=== PATIENT | female | born 1955 | race Caucasian/White ===

== ENCOUNTER 2017-02-19 13:53 | Emergency (ER) | payer SELFPAY ==
[~2017-02-19] VITALS: Ht 157.5 cm; Wt 74.8 kg
[2017-02-19] MEDS ORDERED: HYDROCODONE/APAP 5-325MG TABLET PO ONE (14:45)
[2017-02-19] MEDS ORDERED: HYDROCODONE/APAP 5-325MG TABLET ONE (14:56)
--- NOTE | 2017-02-19 16:39 | NUR ---
Patient discharged to home in stable conditon. Written and verbal after care instructions given. Patient verbalizes understanding of instructions.
[2017-02-19 16:40] VITALS: BP 110/69
== END 2017-02-19 16:41 | disposition home or self-care (01) ==
LOC: ER 13:56
DX: S00.83XA Contusion of other part of head, initial encounter (principal); K08.89 Other specified disorders of teeth and supporting structures; E78.00 Pure hypercholesterolemia, unspecified; W50.1XXA Accidental kick by another person, initial encounter; Y93.89 Activity, other specified; Y92.9 Unspecified place or not applicable; Y99.9 Unspecified external cause status
CPT/HCPCS: 70486; A4663

== ENCOUNTER 2018-02-26 21:12 | Emergency (ER) | payer OTHER ==
[~2018-02-26] VITALS: Ht 157.5 cm; Wt 70.3 kg
--- NOTE | 2018-02-26 21:38 | NUR ---
PATIENT WALKED IN FROM HOME WITH C/O SORE THROAT AND DIFFICULTY SWALLOWING. STATES SHE SWALLOWED A SEED 1 WEEK AGO. ABLE TO SPEAK IN FULL SENTENCES, NO SHORTNESS OF BREATH STATED BY PATIENT.
[2018-02-26] MEDS ORDERED: IV NORMAL SALINE 1000 ML BAG IV ONE (21:45)
--- NOTE | 2018-02-26 21:56 | NUR ---
DR. MITTAL AT BEDSIDE FOR MSE.
--- NOTE | 2018-02-26 22:02 | NUR ---
DR. MITTAL SPOKE WITH PATIENT AND FAMILY AT [facility]. PATIENT AND FAMILY ARE REFUSING BLOOD WORK, EKG AND CT SCAN.
--- NOTE | 2018-02-26 22:15 | NUR ---
PATIENT REFUSED EKG AND IV.
--- NOTE | 2018-02-26 22:17 | NUR ---
Patient discharged to home in stable conditon. Written and verbal after care instructions given. Patient verbalizes understanding of instructions. PATIENT LEFT WITH STABLE GAIT.
[2018-02-26 22:18] VITALS: BP 121/80
== END 2018-02-26 22:19 | disposition home or self-care (01) ==
LOC: ER 21:14
DX: R49.0 Dysphonia (principal); E78.00 Pure hypercholesterolemia, unspecified; Z88.1 Allergy status to other antibiotic agents; Z88.8 Allergy status to other drugs, medicaments and biological substances
CPT/HCPCS: 93005; A4663; J7030

== ENCOUNTER 2019-01-24 19:56 | Emergency (ER) | payer OTHER ==
[~2019-01-24] VITALS: Ht 160 cm; Wt 75.7 kg
--- NOTE | 2019-01-24 20:15 | NUR ---
Patient ambulated with stable gait. A/Ox4. Speech clear, speaks in complete sentences. Patietn came for c/o lower back pain x1.5 mths that radiates to left shoulder and lower extremities. Respiratory even and unlabored, no cough no sob. No cardiovascular distress, all pulses palpable denies any numbness or tingling in extremities. Denies any n/v/d or gu distress.
--- NOTE | 2019-01-24 20:52 | NUR ---
Patient discharged to home in stable conditon. Written and verbal after care instructions given. Patient verbalizes understanding of instructions. Patient ambulated with stable gait.
[2019-01-24 21:07] VITALS: BP 131/77
== END 2019-01-24 21:07 | disposition home or self-care (01) ==
LOC: ER 19:58
DX: M54.12 Radiculopathy, cervical region (principal); M54.42 Lumbago with sciatica, left side; R20.2 Paresthesia of skin; F32.9 Major depressive disorder, single episode, unspecified; I10 Essential (primary) hypertension; E78.5 Hyperlipidemia, unspecified; Z88.1 Allergy status to other antibiotic agents; Z88.8 Allergy status to other drugs, medicaments and biological substances; Z91.048 Other nonmedicinal substance allergy status
CPT/HCPCS: A4663

== ENCOUNTER 2019-03-30 06:43 | Emergency (ER) | payer OTHER ==
[~2019-03-30] VITALS: Ht 157.5 cm; Wt 76.2 kg
--- NOTE | 2019-03-30 06:55 | NUR ---
Patient walked into ER c/o BP of 152/67 2hrs HAND TOOL [employer]ER.Denies CP,SOB,N/V.
--- NOTE | 2019-03-30 07:04 | NUR ---
Patient discharged to home in stable conditon with family taking patient home. Written and verbal after care instructions given. Patient verbalizes understanding of instructions.Walked out of ER with no distress noted.
[2019-03-30 07:05] VITALS: BP 129/89
== END 2019-03-30 07:05 | disposition home or self-care (01) ==
LOC: ER 06:47
DX: Z00.00 Encounter for general adult medical examination without abnormal findings (principal); E78.00 Pure hypercholesterolemia, unspecified; Z88.1 Allergy status to other antibiotic agents; Z91.048 Other nonmedicinal substance allergy status
CPT/HCPCS: 93005; A4663

== ENCOUNTER 2020-08-10 22:44 | Emergency (ER) | payer OTHER ==
[~2020-08-10] VITALS: Ht 165.1 cm; Wt 75.1 kg
--- NOTE | 2020-08-10 22:53 | NUR ---
Patient presents to ER with c/o of pain on Lt armpit pain, noted with small boil to Lt axillary area. No redness or drainage noted. Noted pink and intact. Dr. Wan at bedside assessing pt.
[2020-08-10] MEDS ORDERED: SODIUM BICARBONATE 4.2 % (NEUT) 5 ML VIAL ONE (23:09)
[2020-08-10] MEDS ORDERED: LIDOCAINE 1%-EPI 1:100,000 20 ML VIAL IJ ONE (23:15)
[2020-08-10] MEDS ORDERED: SULFAMETH/TRIMETH 800/160 MG TABLET ONE (23:15)
[2020-08-10] MEDS ORDERED: SULFAMETH/TRIMETH 800/160 MG TABLET PO ONE (23:15)
[2020-08-10] MEDS ORDERED: SODIUM BICARBONATE 4.2 % (NEUT) 5 ML VIAL TP ONE (23:15)
[2020-08-10] MEDS ORDERED: SULF1TAB48 PO (23:22)
--- NOTE | 2020-08-10 23:34 | NUR ---
Incision and Drainage done by Dr. Wan. DC instructions and prescriptions explained to pt and pt's daughter. Verbalized understanding. Left ER in stable condition.
[2020-08-10 23:35] VITALS: BP 118/75
== END 2020-08-10 23:36 | disposition home or self-care (01) ==
LOC: ER 22:48
DX: L02.412 Cutaneous abscess of left axilla (principal); Z88.1 Allergy status to other antibiotic agents
CPT/HCPCS: 10060; 99283; J3490 ×2; A4663

== ENCOUNTER 2020-08-12 20:23 | Emergency (ER) | payer OTHER ==
[~2020-08-12] VITALS: Ht 165.1 cm; Wt 74.8 kg
[~2020-08-12 20:23] MED LIST: SULF1TAB48 PO
[2020-08-12] MEDS ORDERED: CLIN300C12 PO (20:45)
[2020-08-12] MEDS: CLINDAMYCIN HCL 150 MG CAPSULE PO ONE (20:46)
[2020-08-12] MEDS ORDERED: CLINDAMYCIN HCL 150 MG CAPSULE ONE (20:52)
[2020-08-12 20:53] VITALS: BP 122/70
--- NOTE | 2020-08-12 20:53 | NUR ---
Patient discharged to home in stable condition. Written and verbal after care instructions given. Patient verbalizes understanding of instructions. Stressed follow up or return to ER for worsening s/s.
--- NOTE | 2020-08-12 20:54 | NUR ---
NO ADVERSE REACTION TO MEDICATION.
== END 2020-08-12 20:55 | disposition home or self-care (01) ==
LOC: ER 20:24
DX: Z48.817 Encounter for surgical aftercare following surgery on the skin and subcutaneous tissue (principal); L02.412 Cutaneous abscess of left axilla; L03.112 Cellulitis of left axilla; Z88.1 Allergy status to other antibiotic agents; Z91.048 Other nonmedicinal substance allergy status
CPT/HCPCS: A4663

== ENCOUNTER 2021-01-10 13:39 | Emergency (ER) | payer OTHER ==
[~2021-01-10] VITALS: Ht 160 cm; Wt 74.8 kg
[~2021-01-10 13:39] MED LIST changes: +CLIN300C12 PO
[2021-01-10 15:17] LABS: *BILIRUBIN,URIN NEGATIVE (NEGATIVE); *BLOOD, URINE NEGATIVE (NEGATIVE); *CLARITY,URINE CLEAR (CLEAR); *COLOR,URINE YELLOW (YELLOW); *KETONES,URINE NEGATIVE (NEGATIVE); *UROBILINOGEN,URINE 0.2 E.U./dl (NORMAL); LEUKOCYTE ESTERASE ,URINE 1+ (NEGATIVE); NITRITE, URINE NEGATIVE (NEGATIVE); PH,URINE 7.5 (5.0-8.0); UGLUCOSE NEGATIVE (NEGATIVE)
[2021-01-10 15:25] LABS: BACTERIA,URINE FEW /HPF (NONE SEEN); RBC,URINE 0-3 /HPF (0-3); SQUAMOUS EPITHELIAL CELL,UR MODERATE /HPF (NONE SEEN); URINE AMORPHOUS PHOSPHATES FEW /HPF
--- NOTE | 2021-01-10 15:56 | NUR ---
Gave pt d/c instructions, pt verbalized understanding, translated by pt's daughter.
== END 2021-01-10 16:00 | disposition home or self-care (01) ==
LOC: ER 13:40
DX: N89.8 Other specified noninflammatory disorders of vagina (principal); Z88.1 Allergy status to other antibiotic agents; Z88.8 Allergy status to other drugs, medicaments and biological substances; E78.00 Pure hypercholesterolemia, unspecified
CPT/HCPCS: 87086; A4663

== ENCOUNTER 2021-10-24 14:30 | Emergency (ER) | payer OTHER ==
[~2021-10-24] VITALS: Ht 160 cm; Wt 74.8 kg
--- NOTE | 2021-10-24 14:56 | NUR ---
Dr Burgos at the bedside for MSE.
[2021-10-24 15:21] VITALS: BP 118/70
== END 2021-10-24 15:21 | disposition home or self-care (01) ==
LOC: ER 14:37
DX: U07.1 COVID-19 (principal); Z28.310 Unvaccinated for COVID-19
CPT/HCPCS: A4663

== ENCOUNTER 2022-06-24 15:49 | Emergency (ER) | payer OTHER ==
[~2022-06-24] VITALS: Ht 157.5 cm; Wt 77.1 kg
--- NOTE | 2022-06-24 16:12 | NUR ---
66 years old female presents to er with family c/o cough with chest pain for 2 days.
[2022-06-24 16:42] LABS: HEMATOCRIT 38.7 % (31.2-41.9); MEAN CORPUSCULAR HEMOGLOBIN 27.7 uug (24.7-32.8); MEAN CORPUSCULAR VOLUME 84.6 fL (75.5-95.3); PLATELET COUNT (AUTO) 282 K/uL (179-408)
[2022-06-24 16:56] LABS: CARBON DIOXIDE 30 mmol/L (21-32); CHLORIDE 105 mmol/L (98-107); CREATININE 0.7 mg/dL (0.6-1.3); GLUCOSE 94 mg/dL (74-106); POTASSIUM 4.4 mmol/L (3.5-5.1); UREA NITROGEN, BLOOD 12 mg/dL (7-18)
[2022-06-24 17:04] LABS: ALANINE AMINOTRANSFERASE 27 U/L (14-59); ALKALINE PHOSPHATASE 82 U/L (50-136); ASPARTATE AMINOTRANSFERASE 20 U/L (15-37); BILIRUBIN,DIRECT 0.1 mg/dL (0.0-0.2); BILIRUBIN,TOTAL 0.2 mg/dL (0.2-1.0); TOTAL PROTEIN, SERUM 7.7 g/dL (6.4-8.2)
[2022-06-24] MEDS ORDERED: GUAI-671 PO ×2 (17:52→18:02)
--- NOTE | 2022-06-24 18:01 | NUR ---
patient condition stable d/c home with instructions after care reviewed understood left er ambulatory with family, no sob no cp.
[2022-06-24 18:03] VITALS: BP 140/80
== END 2022-06-24 18:07 | disposition home or self-care (01) ==
LOC: ER 15:49
DX: J20.9 Acute bronchitis, unspecified (principal); E78.5 Hyperlipidemia, unspecified; Z88.1 Allergy status to other antibiotic agents; Z91.048 Other nonmedicinal substance allergy status; Z20.822 Contact with and (suspected) exposure to COVID-19
CPT/HCPCS: 36415; 71045; 83605; 84484; 85025; 87040; 93005; A4663

== ENCOUNTER 2022-07-24 19:25 | Emergency (ER) | payer OTHER ==
[~2022-07-24] VITALS: Ht 165.1 cm; Wt 74.8 kg
[~2022-07-24 19:25] MED LIST changes: +GUAI-671 PO
--- NOTE | 2022-07-24 19:45 | NUR ---
BIB family from home, informed of plan of care, assisted into gown and placed on monitor. No s/s of any distress noted, awaiting MD exam, family remains at bedside.
[2022-07-24] MEDS ORDERED: LIDOCAINE VISCUS 2% 15 ML UDC MM ONE (20:00)
[2022-07-24] MEDS ORDERED: MAG HYDROX/AL HYDROX/SIMETH 30 ML LIQUID UDC PO ONE (20:00)
[2022-07-24] MEDS ORDERED: LIDOCAINE VISCUS 2% 15 ML UDC ONE (20:03)
[2022-07-24] MEDS ORDERED: MAG HYDROX/AL HYDROX/SIMETH 30 ML LIQUID UDC ONE (20:03)
--- NOTE | 2022-07-24 20:10 | NUR ---
Medicated as per order, lab at bedside.
[2022-07-24 20:19] LABS: MEAN CORPUSCULAR HEMOGLOBIN 27.3 uug (24.7-32.8); PLATELET COUNT (AUTO) 318 K/uL (179-408)
[2022-07-24 20:26] LABS: CREATININE 0.8 mg/dL (0.6-1.3); MAGNESIUM 2.1 mg/dL (1.8-2.4); POTASSIUM 4.3 mmol/L (3.5-5.1)
--- NOTE | 2022-07-24 20:37 | NUR ---
MD at bedside talking with patient and family.
[2022-07-24] MEDS ORDERED: OMEP20TA20 PO (20:47)
[2022-07-24 20:51] VITALS: BP 125/76
--- NOTE | 2022-07-24 20:51 | NUR ---
ACI given, stable for discharge home with family.
== END 2022-07-24 20:52 | disposition home or self-care (01) ==
LOC: ER 19:27
DX: J04.0 Acute laryngitis (principal); K21.9 Gastro-esophageal reflux disease without esophagitis; E78.5 Hyperlipidemia, unspecified; Z88.1 Allergy status to other antibiotic agents; Z88.8 Allergy status to other drugs, medicaments and biological substances; Z79.899 Other long term (current) drug therapy; Z79.2 Long term (current) use of antibiotics
CPT/HCPCS: 36415; 83735; 85025; A4663

== ENCOUNTER 2023-01-20 21:17 | Emergency (ER) | payer OTHER ==
[~2023-01-20] VITALS: Ht 160 cm; Wt 77.1 kg
[~2023-01-20 21:17] MED LIST changes: +OMEP20TA20 PO
[2023-01-20] MEDS ORDERED: NAPROXEN 500 MG TABLET PO ONE (21:45)
[2023-01-20 21:47] LABS: BASOPHILS # (AUTO) 0.1 K/UL (0.0-0.2); BASOPHILS % (AUTO) 0.7 % (0.0-2.0); EOSINOPHILS # (AUTO) 0.1 K/uL (0.0-0.7); EOSINOPHILS % (AUTO) 1.7 % (0.0-7.0); HEMATOCRIT 38.7 % (31.2-41.9); HEMOGLOBIN 13.1 g/dL (10.9-14.3); LYMPHOCYTES # (AUTO) 2.7 K/uL (0.8-4.8); LYMPHOCYTES % (AUTO) 33.5 % (20.5-51.5); MEAN CORPUSCULAR HEMOGLOBIN 28.2 uug (24.7-32.8); MEAN CORPUSCULAR HGB CONC 34 g/dL (32.3-35.6); MEAN CORPUSCULAR VOLUME 83.6 fL (75.5-95.3); MONOCYTES # (AUTO) 0.5 K/uL (0.1-1.30); MONOCYTES % (AUTO) 6.6 % (0.0-11.0); NEUTROPHILS # (AUTO) 4.6 K/uL (1.8-8.9); NEUTROPHILS % (AUTO) 57.5 % (38.5-71.5); PLATELET COUNT (AUTO) 267 K/uL (179-408); RED BLOOD CELL COUNT(AUTO) 4.63 MIL/uL (3.63-4.92); RED CELL DISTRIBUTION WIDTH 13.5 % (12.3-17.7)
[2023-01-20 21:51] LABS: DIFFERENTIAL COMMENT 1
[2023-01-20] MEDS ORDERED: NAPROXEN 500 MG TABLET ONE (21:51)
[2023-01-20 22:08] LABS: ALANINE AMINOTRANSFERASE 27 U/L (14-59); ALBUMIN 3.4 g/dL (3.4-5.0); ALKALINE PHOSPHATASE 82 U/L (50-136); ASPARTATE AMINOTRANSFERASE 23 U/L (15-37); BILIRUBIN,DIRECT 0.1 mg/dL (0.0-0.2); BILIRUBIN,TOTAL 0.2 mg/dL (0.2-1.0); CALCIUM 9.1 mg/dL (8.5-10.1); CARBON DIOXIDE 29 mmol/L (21-32); CHLORIDE 104 mmol/L (98-107); CREATININE 0.9 mg/dL (0.6-1.3); GLUCOSE 103 mg/dL (74-106); POTASSIUM 4.1 mmol/L (3.5-5.1); SODIUM SERUM 141 mmol/L (136-145); TOTAL PROTEIN, SERUM 7.4 g/dL (6.4-8.2); UREA NITROGEN, BLOOD 18 mg/dL (7-18)
[2023-01-21] MEDS ORDERED: CLOT15CR5 TP (00:29)
[2023-01-21 00:43] VITALS: BP 136/74; O2SAT 98
== END 2023-01-21 00:44 | disposition home or self-care (01) ==
LOC: ER 21:19
DX: R07.89 Other chest pain (principal); R21 Rash and other nonspecific skin eruption; E78.5 Hyperlipidemia, unspecified; Z88.1 Allergy status to other antibiotic agents; Z88.2 Allergy status to sulfonamides; Z88.8 Allergy status to other drugs, medicaments and biological substances; Z91.048 Other nonmedicinal substance allergy status; Z79.2 Long term (current) use of antibiotics; Z79.899 Other long term (current) drug therapy
CPT/HCPCS: 36415; 71045; 84484; 85025; 93005; A4663

== ENCOUNTER 2024-07-05 15:33 | Emergency (ER) | payer OTHER ==
[~2024-07-05] VITALS: Ht 160 cm; Wt 74.8 kg
[~2024-07-05 15:33] MED LIST changes: -CLIN300C12 PO; +CLOT15CR5 TP; -GUAI-671 PO; -OMEP20TA20 PO; -SULF1TAB48 PO
[2024-07-05] MEDS ORDERED: CLINDAMYCIN PHOSPHATE 600 MG/4 ML VIAL IM ONE (21:30)
[2024-07-05] MEDS ORDERED: CLIN300C12 PO (21:34)
[2024-07-05] MEDS ORDERED: CEFTRIAXONE 1 G VIAL ONE (21:44)
[2024-07-05] MEDS ORDERED: CLINDAMYCIN HCL 150 MG CAPSULE ONE (21:45)
[2024-07-05] MEDS: CEFTRIAXONE 1 G VIAL IM ONE (21:57)
[2024-07-05] MEDS: CLINDAMYCIN HCL 150 MG CAPSULE PO ONE (21:57)
[2024-07-05 22:55] VITALS: BP 126/69; TEMP 98.5; O2SAT 97
== END 2024-07-05 22:25 | disposition home or self-care (01) ==
LOC: ER 15:33
DX: L98.9 Disorder of the skin and subcutaneous tissue, unspecified (principal); E78.5 Hyperlipidemia, unspecified; Z88.1 Allergy status to other antibiotic agents; Z88.2 Allergy status to sulfonamides; Z88.7 Allergy status to serum and vaccine
CPT/HCPCS: 99283; 96372; J0696; J3490; A4606; A4663